=== PATIENT | female | born 1980 | race Caucasian/White ===

== ENCOUNTER 2022-04-05 20:49 | Emergency (ER) | payer OTHER, SELFPAY ==
--- NOTE | ~2022-04-05 | XR_ITS ---
EXAMINATION: XR SHOULDER, LEFT CLINICAL INFORMATION: Pain and decreased range of motion COMPARISON: None TECHNIQUE: AP external rotation, Grashey, scapular Y, and axillary views of the left shoulder. FINDINGS: The bones and soft tissues are normal. No fracture. Glenohumeral and acromioclavicular alignment is anatomic with normal joint space. No abnormal soft tissue calcifications. XR/XR shoulder LT min 2V IMPRESSION: Normal left shoulder.
[2022-04-05 21:00] VITALS: BP 115/79; PULSE 108; RESP 20; TEMP 37.2; O2SAT 96; BMI 26.6
--- NOTE | 2022-04-06 00:42 | ED_ITS ---
HPI - General Adult General Chief complaint: Extremity Problem Stated complaint: Extremities Swelling/pain Time Seen by Provider: 04/06/22 00:36 Source: patient Mode of arrival: ambulatory Limitations: no limitations History of Present Illness HPI narrative: Patient anxiety disorder had left lower molar pulled 4 days ago complaining of leg swelling for last 2 weeks no shortness of breath no liver problems no hist ory of alcohol use no chest pain or palpitation feels whole body is swollen but mostly legs no distress no fever or chills Related Data Previous Rx's Medication Instructions Recorded clonazepam 1 mg tablet 1 mg PO TID PRN anxiety 5 days #15 04/09/21 tabs ondansetron HCl 8 mg tablet 8 mg PO Q12H 30 days #60 tabs 09/01/21 quetiapine 200 mg tablet 400 mg PO BEDTIME 90 days #180 tabs 09/01/21 hydrochlorothiazide 12.5 mg tablet 12.5 mg PO QAM #14 tabs 04/06/22 Allergies Allergy/AdvReac Type Severity Reaction Status Date / Time pantoprazole Allergy Unknown stomach Verified 04/05/22 21:05 pain Review of Systems Review of Systems: Yes all other systems are reviewed and are negative [facility] Past Medical History Medical History Anxiety Surgical History History of tubal ligation Family History Family History Father No problems noted. Mother Chronic mental illness Maternal Grandmother Breast cancer Maternal Uncle Throat cancer Sister History of tumor Social History Social History Advance Directives: No Advance Directives Information Provided: Yes Physical Exam ED Vital Signs: Vital Signs - 24 hr 04/05/22 21:00 04/06/22 00:51 Temperature 99.0 F 98.9 F Pulse Rate 108 H 86 Respiratory Rate 20 16 Blood Pressure 115/79 121/86 Pulse Oximetry 96 98 Oxygen Delivery Method Room Air Room Air BMI result Body Mass Index 26.6 Appearance: Alert. Oriented X3. No acute distress. Eyes: PERRLA, No Nystagmus ENT: Pharynx normal. Oral Mucosa moist Neck: Normal inspection. Neck supple. CVS: Normal heart rate and rhythm. Pulses normal. Respiratory: No respiratory distress. Equal air entry bilateral, no wheezing/rales/rhonchi Abdomen: Soft and nontender. Bowel sounds are present, no mass palpable, no CVA tenderness Skin: Skin warm and dry. Normal skin color. Normal skin turgor. Extremities: trace lower extremity edema. No calf tenderness, diffuse mild tenderness left rotator cuff good range of movement Neuro: Oriented X 3. No motor deficit. No sensory deficit.No cerebellar signs , cranial nerves II-XII intact Medical Decision Making MDM Narrative Medical decision making narrative: Patient with mild leg edema labs are stable will discharge patient home advised to keep the legs elevated no signs of CHF Lab Data Lab results reviewed: Yes I reviewed the patient's lab results. Result diagrams: 04/06/22 00:48 04/06/22 00:48 Labs: Lab Results 04/06/22 04/06/22 Range/Units 00:48 00:48 WBC 10.2 (4.8-10.8) X10*3/uL RBC 4.35 (4.20-5.50) X10*6/uL Hgb 13.0 (12.0-16.0) g/dl Hct 38.8 (37.0-47.0) % MCV 89.2 (80.0-98.0) fL MCH 29.9 (27.0-33.0) pg MCHC 33.5 (31.0-35.0) g/dl RDW 12.7 (11.0-16.0) % Plt Count 193 (160-400) X10*3/uL MPV 10.4 (9.4-12.3) fL Immature Gran % (Auto) 0.2 (0.0-0.4) % Neut % (Auto) 70.0 (45-73) % Lymph % (Auto) 24.0 (20-40) % [place] % (Auto) 5.1 (2-11) % Eos % (Auto) 0.3 (0-4) % Baso % (Auto) 0.4 (0-2) % Lymph # (Auto) 2.5 (1.2-4.9) X10*3/uL [place] # (Auto) 0.5 (0.1-1.2) X10*3/uL Eos # (Auto) 0.0 (0.0-0.4) X10*3/uL Baso # (Auto) 0.0 (0.0-0.2) X10*3/uL Abs Immat Gran (auto) 0.02 (0.00-0.03) X10*3/uL Absolute Neuts (auto) 7.2 (2.0-8.3) x10*3/uL Absolute Nucleated RBC 0.000 (0.0-0.012) X10*3/uL Nucleated RBC % (auto) 0.0 (0.0-0.2) /100WBC Sodium 139 (135-145) mmol/L Potassium 4.1 (3.3-5.1) mmol/L Chloride 106 (96-108) mmol/L Carbon Dioxide 24 (22-29) mmol/L Anion Gap 13 (12-20) BUN 10 (9-16) mg/dL Creatinine 0.82 (0.5-1.4) mg/dL Estim Creat Clear Calc 90.1 Estimated GFR > 60 Random Glucose 139 H (60-115) mg/dL Calcium 9.0 (8.4-10.2) mg/dL Total Bilirubin 0.3 (0.0-1.0) mg/dL AST 21 (5-31) U/L ALT 18 (0-31) U/L Alkaline Phosphatase 80 (39-117) U/L Total Protein 6.9 (6.5-8.0) g/dL Albumin 4.1 (3.5-5.0) g/dL Discharge Plan Discharge Clinical Impression: Lower extremity edema Patient Disposition: Home, Self-Care Instructions: Leg Edema (ED) Additional Instructions: Non stand for long time Keep the legs elevated Take hydrochlorothiazide for severe swelling of the leg as needed once a day Prescriptions: New hydrochlorothiazide 12.5 mg tablet 12.5 mg PO QAM Qty: 14 0RF No Action clonazepam 1 mg tablet 1 mg PO TID PRN (Reason: anxiety) 5 Days Qty: 15 0RF ondansetron HCl 8 mg tablet 8 mg PO Q12H 30 Days Qty: 60 6RF quetiapine 200 mg tablet 400 mg PO BEDTIME 90 Days Qty: 180 3RF
[2022-04-06 00:51] VITALS: BP 121/86; PULSE 86; RESP 16; TEMP 37.2; O2SAT 98
[2022-04-06 00:54] LABS: MANUAL DIFF FLAG NO
[2022-04-06 00:55] LABS: Basophils Percent Auto 0.4 % (0-2); Eosinophils Percent Auto 0.3 % (0-4); Hematocrit 38.8 % (37.0-47.0); Imm Gran Abs Auto 0.02 X10*3/uL (0.00-0.03); Imm Gran Pct Auto 0.2 % (0.0-0.4); Lymphocytes Absolute Auto 2.5 X10*3/uL (1.2-4.9); Mean Corpuscular HGB Conc 33.5 g/dl (31.0-35.0); Mean Corpuscular Hemoglobin 29.9 pg (27.0-33.0); Mean Corpuscular Volume 89.2 fL (80.0-98.0); Mean Platelet Volume 10.4 fL (9.4-12.3); Monocytes Absolute Auto 0.5 X10*3/uL (0.1-1.2); Monocytes Percent Auto 5.1 % (2-11); Neutrophils Absolute Auto 7.2 x10*3/uL (2.0-8.3); Platelet Count 193 X10*3/uL (160-400); Red Blood Count 4.35 X10*6/uL (4.20-5.50); Red Cell Distribution Width 12.7 % (11.0-16.0); White Blood Count 10.2 X10*3/uL (4.8-10.8)
[2022-04-06 01:16] LABS: Alanine Aminotransferase 18 U/L (0-31); Albumin Level 4.1 g/dL (3.5-5.0); Alkaline Phosphatase 80 U/L (39-117); Anion Gap 13 (12-20); Aspartate Amino Transferase 21 U/L (5-31); Bilirubin Total 0.3 mg/dL (0.0-1.0); Blood Urea Nitrogen 10 mg/dL (9-16); Carbon Dioxide 24 mmol/L (22-29); Chloride 106 mmol/L (96-108); Creatinine Clr Calc Pharmacy 90.1; Estimated Glomerular Filt Rate > 60; Glucose Random 139 mg/dL (60-115); Potassium 4.1 mmol/L (3.3-5.1); Sodium 139 mmol/L (135-145); Total Protein 6.9 g/dL (6.5-8.0)
[2022-04-06 02:09] LABS: B Type Natriuretic Peptide < 10 pg/mL (<100)
== END 2022-04-06 01:45 | disposition home or self-care (01) ==
PROVIDERS: Emergency Provider Internal Medicine; PCP Internal Medicine
DX: R60.0 Localized edema (principal)
CPT/HCPCS: 36415; 73030; 80053; 83880; 85025; 99283

== ENCOUNTER 2022-07-19 17:34 | Emergency (ER) | payer OTHER, SELFPAY ==
--- NOTE | ~2022-07-19 | CT_ITS ---
EXAMINATION: CT SOFT TISSUE NECK WITH CONTRAST CLINICAL INFORMATION: Right-sided facial swelling. Dental pain. COMPARISON: 454 TECHNIQUE: Multidetector helical imaging was performed in the axial plane following the administration of 60 mL of Omnipaque 350 intravenous contrast. Multiple axial reformats and coronal/sagittal reconstructions were created the technologist workstation for review. This CT examination was performed using dose optimization techniques as appropriate, variously including the following: *Automated exposure control. *Adjustment of mA and/or kV according to patient size (this includes techniques or standardized protocols for targeted exams where dose is matched to indication/reason for exam; i.e. extremities or head). *Use of iterative reconstruction technique. DLP: 454 mGy-cm FINDINGS: Odontogenic enamel erosions most notably affecting the mandibular right-sided canine and mandibular right molar. Periapical lucency associated with the mandibular right molar. There is a peripherally enhancing collection along the outer table of the right mandibular body, measuring up to 1.4 x 0.3 cm. Moderate surrounding soft tissue edema within the right side of face extending into right parotid space and the right anterior neck. Moderate edema of the right aspect of the platysma muscle. No additional discrete fluid collection within the deep soft tissues of the neck. Mild fat stranding within the right premaxillary and retromaxillary adipose tissue. The left-sided premaxillary/retromaxillary is maintained. The pterygopalatine fossa, orbital apical, parapharyngeal, and prelaryngeal adipose tissue is maintained. Otherwise, normal appearance of the parotid, submandibular, and thyroid glands. Mildly prominent right level IIa lymph node measures up to 1.3 cm (within normal limits). Otherwise, scattered subcentimeter lymph nodes bilaterally, none of which are pathologically enlarged or abnormally enhancing. No demonstrated focal lesion or abnormal enhancement within the intrinsic tissues of the tongue or floor of mouth. Normal mucosal contours of the pharynx and larynx without abnormal enhancement. Normal appearance of the hyoid bone, thyroid cartilage, or cartilaginous trachea. The airways remains widely patent. No radiopaque foreign bodies. The atlantooccipital and atlantoaxial articulations remain well aligned. Reversal the normal cervical lordosis centered on C5. No evidence of acute fracture or subluxation of the cervical spine. The vertebral body heights are maintained. Moderate degenerative disc disease at C5-C6 and C6-C7 No evidence of epidural collection. There is no prevertebral soft tissue swelling. Normal opacification of the cervical arterial and venous structures. The visualized portion of the skull base is without significant abnormalities. The visualized paranasal sinuses are clear. The mastoid air cells and middle ear cavities are clear. No demonstrated significant periapical odontogenic disease. CT Upper Chest: The visualized lung apices and upper mediastinum are within normal limits. CT/CT soft tissue neck w IV con IMPRESSION: Odontogenic disease most notably affecting the mandibular right-sided canine and mandibular right molar. There is a small collection along the outer table of the right mandibular body suggestive of a developing odontogenic abscess, measuring 1.4 x 0.3 cm. Moderate surrounding soft tissue edema within the right side of face extending into the right parotid space and right anterior neck.
[2022-07-19 17:44] VITALS: BP 143/86; PULSE 136; RESP 20; TEMP 37.2; O2SAT 96; BMI 26.6
--- NOTE | 2022-07-19 18:24 | ED.DENTAL ---
HPI - Dental/Oral General Chief complaint: Dental/Oral <EVONNE Rob - Last Filed: 07/30/22 10:22> Stated complaint: abcess tooth <EVONNE Rob - Last Filed: 07/30/22 10:22> Time Seen by Provider: 07/19/22 20:51 <EVONNE Rob - Last Filed: 07/30/22 10:22> Related Data Home medications: Previous Rx's Medication Instructions Recorded clonazepam 1 mg tablet 1 mg PO TID PRN anxiety 5 days #15 04/09/21 tabs ondansetron HCl 8 mg tablet 8 mg PO Q12H 30 days #60 tabs 09/01/21 quetiapine 200 mg tablet 400 mg PO BEDTIME 90 days #180 tabs 09/01/21 hydrochlorothiazide 12.5 mg tablet 12.5 mg PO QAM #14 tabs 04/06/22 amoxicillin 875 mg-potassium 1 tab PO BID 7 days #14 tabs 07/19/22 clavulanate 125 mg tablet ketorolac 10 mg tablet 10 mg PO Q6H PRN pain 5 days #20 07/19/22 tabs oxycodone 5 mg capsule 5 mg PO Q8H PRN breakthrough pain, 07/19/22 severe #4 caps <EVONNE Rob - Last Filed: 07/30/22 10:22> Allergies/adverse reactions: Allergies Allergy/AdvReac Type Severity Reaction Status Date / Time pantoprazole Allergy Unknown stomach Verified 04/05/22 21:05 pain <EVONNE Rob Last Filed: 07/30/22 10:22> Review of Systems Review of Systems: Yes all other systems are reviewed and are negative <EVONNE Rob Last Filed: 07/30/22 10:22> Constitutional: Constitutional: Reports as per HPI <EVONNE Rob Last Filed: 07/30/22 10:22> PMFSH Past Medical History Attestation statement: The following information was validated with the patient. <EVONNE Rob Last Filed: 07/30/22 10:22> Medical History: Medical History Anxiety <EVONNE Rob Last Filed: 07/30/22 10:22> Surgical History: Surgical History History of tubal ligation <EVONNE Rob - Last Filed: 07/30/22 10:22> Family History Family History: Family History Father No problems noted. Mother Chronic mental illness Maternal Grandmother Breast cancer Maternal Uncle Throat cancer Sister History of tumor <EVONNE Rob - Last Filed: 07/30/22 10:22> Social History Social History: Social History Advance Directives: No Advance Directives Information Provided: No <EVONNE Rob - Last Filed: 07/30/22 10:22> Physical Exam Vital Signs: Vital Signs: Last Vital Signs Temp 98.6 F 07/19/22 23:42 Pulse 77 07/19/22 23:42 Resp 18 07/19/22 23:42 BP 127/76 07/19/22 23:42 Pulse Ox 96 07/19/22 23:42 O2 Del Method 07/19/22 21:47 BMI result Body Mass Index 26.6 <EVONNE Rob - Last Filed: 07/30/22 10:22> Vital Signs: Last Vital Signs Temp 98.6 F 07/19/22 23:42 Pulse 77 07/19/22 23:42 Resp 18 07/19/22 23:42 BP 127/76 07/19/22 23:42 Pulse Ox 96 07/19/22 23:42 O2 Del Method 07/19/22 21:47 BMI result Body Mass Index 26.6 <Tejal Espino MD - Last Filed: 07/19/22 23:30> Const: General: cooperative, healthy appearing and no acute distress <EVONNE Rob - Last Filed: 07/30/22 10:22> Orientation/consciousness: patient oriented x3 <EVONNE Rob - Last Filed: 07/30/22 10:22> Limitations: no limitations <EVONNE Rob - Last Filed: 07/30/22 10:22> HEENT: Head: Yes normal to inspection and Yes atraumatic <Ingrid Karthikgurpreet PA - Last Filed: 07/30/22 10:22> Ears: hearing grossly normal bilaterally <Ingrid Karthikgurpreet PA - Last Filed: 07/30/22 10:22> General nose exam: Normal external nose present <Ingrid Covarrubias PA - Last Filed: 07/30/22 10:22> Face and sinus: Yes normal facial exam <Ingrid Karthikgurpreet PA - Last Filed: 07/30/22 10:22> Eyes: General: appearance normal, both eyes and all related structures <Ingrid Covarrubias PA - Last Filed: 07/30/22 10:22> EOM: EOMs intact bilaterally <Ingrid Covarrubias PA - Last Filed: 07/30/22 10:22> Neck: Neck: Yes normal visual inspection and Yes no meningeal signs <Ingrid Covarrubias PA - Last Filed: 07/30/22 10:22> Resp: Effort & Inspection: normal respiratory effort and no respiratory distress <Ingrid Covarrubias PA - Last Filed: 07/30/22 10:22> Auscultation: clear to auscultation bilaterally <Ingrid Covarrubias PA - Last Filed: 07/30/22 10:22> Cardio: Rate: regular rate <Ingrid Covarrubias PA - Last Filed: 07/30/22 10:22> Heart sounds: S1 normal heart sound present and S2 normal heart sound present <Ingrid Covarrubias PA - Last Filed: 07/30/22 10:22> GI: Inspection: Yes normal to inspection <Ingrid Covarrubias PA - Last Filed: 07/30/22 10:22> Palpation (GI): Soft to palpation, nontender, no guarding and not rigid <Ingrid Covarrubias PA - Last Filed: 07/30/22 10:22> : General: Yes no CVA tenderness <Ingrid Covarrubias PA - Last Filed: 07/30/22 10:22> Back/Spine/Pelvis: Back: no CVA tenderness <Ingrid Covarrubias PA - Last Filed: 07/30/22 10:22> Skin: Rashes: no rashes <EVONNE Rob Last Filed: 07/30/22 10:22> Wounds: no wounds <EVONNE Rob Last Filed: 07/30/22 10:22> Neuro: General: patient oriented x3, tone normal and no meningeal signs <EVONNE Rob Last Filed: 07/30/22 10:22> Gait exam (Neuro): Normal gait present <EVONNE Rob Last Filed: 07/30/22 10:22> Extrem: General: Yes normal to inspection <EVONNE Rob Last Filed: 07/30/22 10:22> Course Course Course Narrative: RME--42-year-old female past medical history of anxiety presenting to the ED complaining of right-sided facial swelling/dental pain since this morning. Denies drainage from area, difficulty/inability to swallow, ear pain tachycardic to 136 in triage, Notable right facial swelling. Fluctuant area noted to right posterior molar. No erythema Labs including lactic/blood cultures and CT ordered <EVONNE Rob Last Filed: 07/30/22 10:22> Medications Administered Discontinued Medications Generic Name Dose Route Start Last Admin Trade Name Alliq PRN Reason Stop Dose Admin Dexamethasone Sodium Phosphate 10 mg 07/19/22 21:39 07/19/22 22:09 Dexamethasone Sod Phosphate 10 Mg/Ml Vial IVPUSH 07/19/22 21:40 10 mg ONCE ONE Administration Fentanyl 25 mcg 07/19/22 21:39 07/19/22 22:08 Fentanyl Citrate/Pf 100 Mcg/2 Ml Vial IVPUSH 07/19/22 21:40 25 mcg ONCE ONE Administration Protocol Cefepime HCl 1 gm/ Sodium 50 mls @ 100 mls/hr 07/19/22 21:39 07/19/22 23:00 Chloride IV 07/19/22 22:08 Infused ONCE ONE Infusion Sodium Chloride 1,000 mls @ 999 mls/hr 07/19/22 22:30 07/19/22 23:00 Ns IV 07/19/22 23:30 999 mls/hr .Q1H1M HERI Administration Iohexol 100 ml 07/19/22 20:54 07/19/22 20:54 Iohexol 350 Mg/Ml 100 Ml Infus..Btl IV 07/19/22 20:55 60 ml ONCE ONE Administration Ketorolac Tromethamine 15 mg 07/19/22 23:23 07/19/22 23:56 Ketorolac Tromethamine 30 Mg/Ml Vial IVPUSH 07/19/22 23:24 15 mg ONCE ONE Administration <EVONNE Rob - Last Filed: 07/30/22 10:22> Medications Administered Discontinued Medications Generic Name Dose Route Start Last Admin Trade Name Arden PRN Reason Stop Dose Admin Dexamethasone Sodium Phosphate 10 mg 07/19/22 21:39 07/19/22 22:09 Dexamethasone Sod Phosphate 10 Mg/Ml Vial IVPUSH 07/19/22 21:40 10 mg ONCE ONE Administration Fentanyl 25 mcg 07/19/22 21:39 07/19/22 22:08 Fentanyl Citrate/Pf 100 Mcg/2 Ml Vial IVPUSH 07/19/22 21:40 25 mcg ONCE ONE Administration Protocol Cefepime HCl 1 gm/ Sodium 50 mls @ 100 mls/hr 07/19/22 21:39 07/19/22 23:00 Chloride IV 07/19/22 22:08 Infused ONCE ONE Infusion Sodium Chloride 1,000 mls @ 999 mls/hr 07/19/22 22:30 07/19/22 23:00 Ns IV 07/19/22 23:30 999 mls/hr .Q1H1M HERI Administration Iohexol 100 ml 07/19/22 20:54 07/19/22 20:54 Iohexol 350 Mg/Ml 100 Ml Infus..Btl IV 07/19/22 20:55 60 ml ONCE ONE Administration Ketorolac Tromethamine 15 mg 07/19/22 23:23 07/19/22 23:56 Ketorolac Tromethamine 30 Mg/Ml Vial IVPUSH 07/19/22 23:24 15 mg ONCE ONE Administration <Tejal Espino MD - Last Filed: 07/19/22 23:30> Medical Decision Making Medical Decision Making [facility] Narrative: 2129: 42-year-old female with known dental caries comes in with worsening swelling at the right lower jaw since yesterday but denies any fevers or chills or difficulty breathing or swallowing. She is currently meeting sepsis criteria and will receive IVF, abx, steroids. I was able to express a small amount of pus on incision with 11 blade. <Tejal Espino MD - Last Filed: 07/19/22 23:30> Differential Diagnosis Please see the discussion above <Tejal Espino MD - Last Filed: 07/19/22 23:30> Lab Data Please see the discussion above <Tejal Espino MD - Last Filed: 07/19/22 23:30> Result Diagrams: 07/19/22 18:33 07/19/22 18:33 <EVONNE Rob - Last Filed: 07/30/22 10:22> Labs: Lab Results 07/19/22 07/19/22 07/19/22 Range/Units 18:33 18:33 18:33 WBC 10.9 H (4.8-10.8) X10*3/uL RBC 4.57 (4.20-5.50) X10*6/uL Hgb 13.5 (12.0-16.0) g/dl Hct 40.6 (37.0-47.0) % MCV 88.8 (80.0-98.0) fL MCH 29.5 (27.0-33.0) pg MCHC 33.3 (31.0-35.0) g/dl RDW 12.5 (11.0-16.0) % Plt Count 172 (160-400) X10*3/uL MPV 11.2 (9.4-12.3) fL Immature Gran % (Auto) 0.3 (0.0-0.4) % Neut % (Auto) 76.2 H (45-73) % Lymph % (Auto) 15.8 L (20-40) % [place] % (Auto) 7.3 (2-11) % Eos % (Auto) 0.1 (0-4) % Baso % (Auto) 0.3 (0-2) % Lymph # (Auto) 1.7 (1.2-4.9) X10*3/uL [place] # (Auto) 0.8 (0.1-1.2) X10*3/uL Eos # (Auto) 0.0 (0.0-0.4) X10*3/uL Baso # (Auto) 0.0 (0.0-0.2) X10*3/uL Abs Immat Gran (auto) 0.03 (0.00-0.03) X10*3/uL Absolute Neuts (auto) 8.3 (2.0-8.3) x10*3/uL Absolute Nucleated RBC 0.000 (0.0-0.012) X10*3/uL Nucleated RBC % (auto) 0.0 (0.0-0.2) /100WBC Sodium 140 (135-145) mmol/L Potassium 3.8 (3.3-5.1) mmol/L Chloride 104 (96-108) mmol/L Carbon Dioxide 26 (22-29) mmol/L Anion Gap 14 (12-20) BUN 9 (9-16) mg/dL Creatinine 0.77 (0.5-1.4) mg/dL Estim Creat Clear Calc 96.0 Estimated GFR > 60 Random Glucose 100 (60-115) mg/dL Lactic Acid 1.4 (0.5-2.0) mmol/L Calcium 9.2 (8.4-10.2) mg/dL Total Bilirubin 0.7 (0.0-1.0) mg/dL Direct Bilirubin < 0.2 (0.0-0.5) mg/dL AST 16 (5-31) U/L ALT 10 (0-31) U/L Alkaline Phosphatase 98 (39-117) U/L Total Protein 7.1 (6.5-8.0) g/dL Albumin 4.3 (3.5-5.0) g/dL <EVONNE Rob - Last Filed: 07/30/22 10:22> Lab Results 07/19/22 07/19/22 07/19/22 Range/Units 18:33 18:33 18:33 WBC 10.9 H (4.8-10.8) X10*3/uL RBC 4.57 (4.20-5.50) X10*6/uL Hgb 13.5 (12.0-16.0) g/dl Hct 40.6 (37.0-47.0) % MCV 88.8 (80.0-98.0) fL MCH 29.5 (27.0-33.0) pg MCHC 33.3 (31.0-35.0) g/dl RDW 12.5 (11.0-16.0) % Plt Count 172 (160-400) X10*3/uL MPV 11.2 (9.4-12.3) fL Immature Gran % (Auto) 0.3 (0.0-0.4) % Neut % (Auto) 76.2 H (45-73) % Lymph % (Auto) 15.8 L (20-40) % [place] % (Auto) 7.3 (2-11) % Eos % (Auto) 0.1 (0-4) % Baso % (Auto) 0.3 (0-2) % Lymph # (Auto) 1.7 (1.2-4.9) X10*3/uL [place] # (Auto) 0.8 (0.1-1.2) X10*3/uL Eos # (Auto) 0.0 (0.0-0.4) X10*3/uL Baso # (Auto) 0.0 (0.0-0.2) X10*3/uL Abs Immat Gran (auto) 0.03 (0.00-0.03) X10*3/uL Absolute Neuts (auto) 8.3 (2.0-8.3) x10*3/uL Absolute Nucleated RBC 0.000 (0.0-0.012) X10*3/uL Nucleated RBC % (auto) 0.0 (0.0-0.2) /100WBC Sodium 140 (135-145) mmol/L Potassium 3.8 (3.3-5.1) mmol/L Chloride 104 (96-108) mmol/L Carbon Dioxide 26 (22-29) mmol/L Anion Gap 14 (12-20) BUN 9 (9-16) mg/dL Creatinine 0.77 (0.5-1.4) mg/dL Estim Creat Clear Calc 96.0 Estimated GFR > 60 Random Glucose 100 (60-115) mg/dL Lactic Acid 1.4 (0.5-2.0) mmol/L Calcium 9.2 (8.4-10.2) mg/dL Total Bilirubin 0.7 (0.0-1.0) mg/dL Direct Bilirubin < 0.2 (0.0-0.5) mg/dL AST 16 (5-31) U/L ALT 10 (0-31) U/L Alkaline Phosphatase 98 (39-117) U/L Total Protein 7.1 (6.5-8.0) g/dL Albumin 4.3 (3.5-5.0) g/dL <Tejal Espino MD - Last Filed: 07/19/22 23:30> Radiology Impression Radiologist Impression: My interpretation is in agreement with radiology's impression of the imaging study. <Tejal Espino MD - Last Filed: 07/19/22 23:30> External Record Review External record reviewed: Outpatient record and Prior outpatient labs <Tejal Espino MD - Last Filed: 07/19/22 23:30> Procedures Abscess I/D Site: other <Tejal Espino MD - Last Filed: 07/19/22 23:30> Side (if applicable): right <Tejal Espino MD - Last Filed: 07/19/22 23:30> Technique: incised with blade <Tejal Espino MD - Last Filed: 07/19/22 23:30> Amount of fluid expressed (mL): 2 <Tejal Espino MD - Last Filed: 07/19/22 23:30> Sent for culture/gram staining?: No <Tejal Espino MD - Last Filed: 07/19/22 23:30> Irrigation: Yes <Tejal Espino MD - Last Filed: 07/19/22 23:30> Packing used?: none <Tejal Espino MD - Last Filed: 07/19/22 23:30> Complications: pain <Tejal Espino MD - Last Filed: 07/19/22 23:30> Critical Care Time Critical Care Time Critical Care Time: Yes <Tejal Espino MD - Last Filed: 07/19/22 23:30> Total Critical Care Time: 30 <Tejal Espino MD - Last Filed: 07/19/22 23:30> Attestation: I personally attest to this time spent taking care of the patient. <Tejal Espino MD - Last Filed: 07/19/22 23:30> Discharge Plan Discharge Clinical Impression: Dental abscess, Dental caries <EVONNE Rob - Last Filed: 07/30/22 10:22> Patient Disposition: Home, Self-Care <EVONNE Rob - Last Filed: 07/30/22 10:22> Instructions: Dental Abscess (ED) <EVONNE Rob - Last Filed: 07/30/22 10:22> Additional Instructions: 1. Resume all home medications as prescribed. 2. Complete the entire course of antibiotics as ordered. 3. Tylenol 1000 mg, orally, every 6 hours as needed for pain control. Do not exceed 4000 mg within 24 hours. 4. I recommend applying ice to the lower edge of your jaw for 5-10 minutes, unexposed skin, 3 to 4 times a day. 5. Follow-up with a dentist in the next 3-5 days. Return to the ER for any worsening of symptoms. <EVONNE Rob - Last Filed: 07/30/22 10:22> Prescriptions: New amoxicillin-pot clavulanate 875-125 mg tablet 1 tab PO BID 7 Days Qty: 14 0RF ketorolac 10 mg tablet 10 mg PO Q6H PRN (Reason: pain) 5 Days Qty: 20 0RF Rx Instructions: Patient received Toradol in the emergency room. oxycodone 5 mg capsule 5 mg PO Q8H PRN (Reason: breakthrough pain, severe) Qty: 4 0RF Rx Instructions: Partial Fill upon patient request. No Action clonazepam 1 mg tablet 1 mg PO TID PRN (Reason: anxiety) 5 Days Qty: 15 0RF ondansetron HCl 8 mg tablet 8 mg PO Q12H 30 Days Qty: 60 6RF quetiapine 200 mg tablet 400 mg PO BEDTIME 90 Days Qty: 180 3RF hydrochlorothiazide 12.5 mg tablet 12.5 mg PO QAM Qty: 14 0RF <EVONNE Rob - Last Filed: 07/30/22 10:22> Referrals: Jade Adrian MD [Primary Care Provider] - <EVONNE Rob - Last Filed: 07/30/22 10:22> Stand Alone Forms: Work/School Release <EVONNE Rob - Last Filed: 07/30/22 10:22> Interventions: ED Discharge Assessment Last Done: 07/20/22 00:00 <EVONNE Rob - Last Filed: 07/30/22 10:22> Discharge Date/Time: 07/20/22 00:01 <EVONNE Rob - Last Filed: 07/30/22 10:22>
[2022-07-19 18:40] LABS: MANUAL DIFF FLAG NO
[2022-07-19 18:58] LABS: Basophils Percent Auto 0.3 % (0-2); Eosinophils Percent Auto 0.1 % (0-4); Hematocrit 40.6 % (37.0-47.0); Hemoglobin 13.5 g/dl (12.0-16.0); Imm Gran Abs Auto 0.03 X10*3/uL (0.00-0.03); Imm Gran Pct Auto 0.3 % (0.0-0.4); Lactic Acid 1.4 mmol/L (0.5-2.0); Lymphocytes Absolute Auto 1.7 X10*3/uL (1.2-4.9); Lymphocytes Percent Auto 15.8 % (20-40); Mean Corpuscular HGB Conc 33.3 g/dl (31.0-35.0); Mean Corpuscular Hemoglobin 29.5 pg (27.0-33.0); Mean Corpuscular Volume 88.8 fL (80.0-98.0); Mean Platelet Volume 11.2 fL (9.4-12.3); Monocytes Absolute Auto 0.8 X10*3/uL (0.1-1.2); Monocytes Percent Auto 7.3 % (2-11); Neutrophils Absolute Auto 8.3 x10*3/uL (2.0-8.3); Neutrophils Percent Auto 76.2 % (45-73); Platelet Count 172 X10*3/uL (160-400); Red Blood Count 4.57 X10*6/uL (4.20-5.50); Red Cell Distribution Width 12.5 % (11.0-16.0); White Blood Count 10.9 X10*3/uL (4.8-10.8)
[2022-07-19 19:07] LABS: Alanine Aminotransferase 10 U/L (0-31); Albumin Level 4.3 g/dL (3.5-5.0); Alkaline Phosphatase 98 U/L (39-117); Anion Gap 14 (12-20); Aspartate Amino Transferase 16 U/L (5-31); Bilirubin Direct < 0.2 mg/dL (0.0-0.5); Bilirubin Total 0.7 mg/dL (0.0-1.0); Blood Urea Nitrogen 9 mg/dL (9-16); Calcium 9.2 mg/dL (8.4-10.2); Carbon Dioxide 26 mmol/L (22-29); Chloride 104 mmol/L (96-108); Estimated Glomerular Filt Rate > 60; Glucose Random 100 mg/dL (60-115); Potassium 3.8 mmol/L (3.3-5.1); Sodium 140 mmol/L (135-145); Total Protein 7.1 g/dL (6.5-8.0)
[2022-07-19] MEDS: iohexoL 350 MG/ML 100 ML INFUS..BTL IV (20:54)
[2022-07-19 21:47] VITALS: BP 186/100; PULSE 112; RESP 20; TEMP 36.7; O2SAT 99
[2022-07-19] MEDS: fentaNYL citrate/PF 100 MCG/2 ML VIAL 25 MCG IVPUSH (22:08)
[2022-07-19] MEDS: cefEPime HCl 1 GM in 0.9 % Sodium Chloride 50 ML IV (22:09)
[2022-07-19] MEDS: dexAMETHasone sod phosphate 10 MG/ML VIAL IVPUSH (22:09)
[2022-07-19] MEDS: 0.9 % Sodium Chloride 1,000 ML 999 ML IV (23:00)
[2022-07-19 23:42] VITALS: BP 127/76; PULSE 77; RESP 18; TEMP 37; O2SAT 96
[2022-07-19] MEDS: Ketorolac Tromethamine 30 MG/ML VIAL 15 MG IVPUSH (23:56)
== END 2022-07-20 00:01 | disposition home or self-care (01) ==
PROVIDERS: Physician Assistant; Emergency Provider Student in an Organized Health Care Education/Training Program; PCP Internal Medicine
DX: K04.7 Periapical abscess without sinus (principal); K02.9 Dental caries, unspecified; M54.2 Cervicalgia
CPT/HCPCS: 36415; 41800; 70491; 80048; 80076; 83605; 85025; 87040; 96365; 96375; 99284; J0692; J1100; J1885; J3010; Q9967

== ENCOUNTER 2023-03-15 10:07 | Emergency (ER) | payer OTHER, SELFPAY ==
[2023-03-15 10:24] VITALS: PULSE 110; O2SAT 99; BMI 30.4
--- NOTE | 2023-03-15 10:24 | ED.GENADULT ---
HPI - General Adult General Chief complaint: Nausea/Vomiting/Diarrhea Stated complaint: nausea vomiting heroin withdrawa in police custody Time Seen by Provider: 03/15/23 10:24 Source: patient, EMS and RN notes reviewed Mode of arrival: EMS Limitations: no limitations History of Present Illness HPI narrative: Patient is a 43-year-old female with history of anxiety, opioid use presenting to the emergency department from the court house in [place] custody with nausea and vomiting, upper abdominal pain. States she has not used heroin for 2 days and is experiencing withdrawal symptoms. Reports last use was prior to recent arrest, use six bags at that time. Denies any fevers. Denies any toxic ingestion. complaint: nausea and vomiting Onset (ago): hour(s) Location: abdomen Radiation: non-radiation Severity: moderate Quality: burning Pain Consistency: constant Relieving factors: none Exacerbating factors: none Associated symptoms: nausea/vomiting Treatments prior to arrival: none Related Data Previous Rx's Medication Instructions Recorded clonazepam 1 mg tablet 1 mg PO TID PRN anxiety 5 days #15 04/09/21 tabs hydrochlorothiazide 12.5 mg tablet 12.5 mg PO QAM #14 tabs 04/06/22 amoxicillin 875 mg-potassium 1 tab PO BID 7 days #14 tabs 07/19/22 clavulanate 125 mg tablet ketorolac 10 mg tablet 10 mg PO Q6H PRN pain 5 days #20 07/19/22 tabs oxycodone 5 mg capsule 5 mg PO Q8H PRN breakthrough pain, 07/19/22 severe #4 caps quetiapine 200 mg tablet 400 mg (2 x 200 mg) PO BEDTIME 90 08/18/22 days #180 tabs ondansetron HCl 8 mg tablet 8 mg PO Q12H 30 days #60 tabs 09/06/22 Allergies Allergy/AdvReac Type Severity Reaction Status Date / Time pantoprazole Allergy Unknown stomach Verified 03/15/23 10:24 pain Review of Systems Review of Systems: As per HPI. Yes all other systems are reviewed and are negative Constitutional: Constitutional: Reports as per HPI [facility] Past Medical History Medical History Anxiety Surgical History History of tubal ligation Family History Family History Father No problems noted. Mother Chronic mental illness Maternal Grandmother Breast cancer Maternal Uncle Throat cancer Sister History of tumor Social History Social History Alcohol intake: never Smoked in Last 30 Days: Yes Use of substances other than those prescribed or required for medical reasons: Yes Substance Use Type: Heroin Substance Use Frequency: Chronic Longstanding Last Used Substance: Days (ago) Advance Directives: No Patient : No Physical Exam ED Vital Signs: Vital Signs - 24 hr 03/15/23 10:27 Pulse Rate 97 Respiratory Rate 20 Pulse Oximetry 99 Oxygen Delivery Method Room Air BMI result Body Mass Index 30.4 Vital signs have been reviewed and appear to be correct. Heart rate normal. Respiratory rate normal. Oxygen saturation normal. Staff unable to obtain temperature or blood pressure this time due to patient vomiting. Const General: cooperative Orientation/consciousness: oriented to person, oriented to place, oriented to time and patient oriented x3 Limitations: no limitations HENMT Head: Yes normocephalic and Yes atraumatic Ears: external ears normal General nose exam: Normal external nose present Face and sinus: Yes face symmetric Mouth: oropharynx normal and moist mucous membranes Throat: Yes uvula midline Eyes Pupils: Equal, round and reactive pupils present Resp Effort & Inspection: normal respiratory effort and able to speak in complete sentences Auscultation: clear to auscultation bilaterally Cardio Rate: regular rate Rhythm: regular rhythm Heart sounds: S1 normal heart sound present and S2 normal heart sound present GI Palpation (GI): Soft to palpation and nontender Auscultation: normoactive bowel sounds General: Yes no CVA tenderness Back/Spine/Pelvis Back: no CVA tenderness Skin General skin exam: elasticity normal and turgor normal Neuro General: oriented to person, oriented to place, oriented to time, patient oriented x3, moves all extremities and no focal motor deficits Cranial nerves: Yes Equal, round and reactive pupils present Cognition (Neuro): normal cognition Extrem General: Yes full ROM Psych Mental Status: mental status grossly normal Affect: normal affect Thought process: Normal thought process present Medications Administered Generic Name Dose Route Start Last Admin Trade Name Freq PRN Reason Stop Dose Admin Sodium Chloride 1,000 mls @ 999 mls/hr 03/15/23 10:30 03/15/23 10:43 Ns IV 03/15/23 11:30 999 mls/hr .Q1H1M HERI Administration Discontinued Medications Generic Name Dose Route Start Last Admin Trade Name Freq PRN Reason Stop Dose Admin Ondansetron HCl 4 mg 03/15/23 10:25 03/15/23 10:42 Ondansetron Hcl 4 Mg/2 Ml Vial IVPUSH 03/15/23 10:26 4 mg ONCE ONE Administration Medical Decision Making Medical Decision Making [facility] Narrative: Patient is a 43-year-old female with history of anxiety, opioid use presenting to the emergency department from the court house in place custody with nausea and vomiting, upper abdominal pain. On exam patient is awake, A+Ox3, VS WNL, unable to obtain BP or temperature at this time due to vomiting, normal neurological exam without focal deficits, physical exam findings as above. Given reported symptoms and physical exam findings, initial differential includes opiate withdrawal, gastritis, electrolyte abnormality. Plan: basic labs, urine drug screen, IV fluids, medicate for nausea 11:31 Patient now refusing labs, stating that she wishes to leave against medical advice. Risks of leaving against medical advice discussed with patient up to and including . Patient verbalized understanding of risks and still wishes to leave against medical advice. Advised patient she can return at any time. Discharge Plan Discharge Clinical Impression: Nausea & vomiting Patient Disposition: Left Against Medical Advice Prescriptions: No Action clonazepam 1 mg tablet 1 mg PO TID PRN (Reason: anxiety) 5 Days Qty: 15 0RF quetiapine 200 mg tablet 400 mg PO BEDTIME 90 Days Qty: 180 3RF ondansetron HCl 8 mg tablet 8 mg PO Q12H 30 Days Qty: 60 6RF amoxicillin-pot clavulanate 875-125 mg tablet 1 tab PO BID 7 Days Qty: 14 0RF ketorolac 10 mg tablet 10 mg PO Q6H PRN (Reason: pain) 5 Days Qty: 20 0RF Rx Instructions: Patient received Toradol in the emergency room. oxycodone 5 mg capsule 5 mg PO Q8H PRN (Reason: breakthrough pain, severe) Qty: 4 0RF Rx Instructions: Partial Fill upon patient request. hydrochlorothiazide 12.5 mg tablet 12.5 mg PO QAM Qty: 14 0RF Stand Alone Forms: Against Medical Advice
[2023-03-15 10:27] VITALS: PULSE 97; RESP 20; O2SAT 99
[2023-03-15] MEDS: ondansetron HCL 4 MG/2 ML VIAL IVPUSH (10:42)
[2023-03-15] MEDS: 0.9 % Sodium Chloride 1,000 ML 999 ML IV (10:43)
--- NOTE | 2023-03-15 10:43 | PC.NURSE ---
alert and oriented x3, unable to obtain BP d/t pt actively vomiting - will attempt to obtain BP when able. pt biba from [facility] d/t n/v from heroin withdrawals. pt verbalizes last use of heroin was sometime yesterday. pt states she is chronic user and uses 6 bags daily intravenously through her neck. 22gIV placed in right AC - medications administered per provider order. pt provided w/ emesis bag. call ross placed within reach.
--- NOTE | 2023-03-15 11:32 | PC.NURSE ---
pt requesting to leave AMA at this time. form signed. will d/c when paperwork is in.
--- NOTE | 2023-03-15 11:45 | PC.NURSE ---
pt left AMA w/o signing d/c paperwork.
== END 2023-03-15 11:46 | disposition left against medical advice (07) ==
PROVIDERS: Emergency Provider Emergency Medicine
DX: R11.2 Nausea with vomiting, unspecified (principal); F11.90 Opioid use, unspecified, uncomplicated; F41.9 Anxiety disorder, unspecified; Z79.899 Other long term (current) drug therapy
CPT/HCPCS: 96374; 99284; J2405

== ENCOUNTER 2023-12-28 23:35 | Emergency (ER) | payer OTHER, SELFPAY ==
[2023-12-28 23:44] VITALS: BP 108/55; PULSE 77; RESP 16; TEMP 36.8; O2SAT 97; BMI 28.3
[2023-12-29 00:02] LABS: MANUAL DIFF FLAG NO
[2023-12-29 00:03] LABS: Basophils Percent Auto 0.4 % (0-2); Eosinophils Absolute Auto 0.1 X10*3/uL (0.0-0.4); Eosinophils Percent Auto 1.7 % (0-4); Hematocrit 40.4 % (37.0-47.0); Hemoglobin 13.8 g/dl (12.0-16.0); Imm Gran Abs Auto 0.01 X10*3/uL (0.00-0.03); Imm Gran Pct Auto 0.1 % (0.0-0.4); Lymphocytes Absolute Auto 2.9 X10*3/uL (1.2-4.9); Lymphocytes Percent Auto 40.3 % (20-40); Mean Corpuscular HGB Conc 34.2 g/dl (31.0-35.0); Mean Corpuscular Hemoglobin 29.6 pg (27.0-33.0); Mean Corpuscular Volume 86.7 fL (80.0-98.0); Monocytes Absolute Auto 0.4 X10*3/uL (0.1-1.2); Monocytes Percent Auto 6.1 % (2-11); Neutrophils Absolute Auto 3.7 x10*3/uL (2.0-8.3); Neutrophils Percent Auto 51.4 % (45-73); Platelet Count 166 X10*3/uL (160-400); Red Blood Count 4.66 X10*6/uL (4.20-5.50); Red Cell Distribution Width 13.2 % (11.0-16.0); White Blood Count 7.2 X10*3/uL (4.8-10.8)
[2023-12-29 00:16] LABS: Alanine Aminotransferase 20 U/L (0-31); Albumin Level 4.2 g/dL (3.5-5.0); Alkaline Phosphatase 94 U/L (39-117); Anion Gap 11 (12-20); Aspartate Amino Transferase 18 U/L (5-31); Bilirubin Total 0.4 mg/dL (0.0-1.0); Blood Urea Nitrogen 10 mg/dL (9-16); Calcium 9.5 mg/dL (8.4-10.2); Carbon Dioxide 29 mmol/L (22-29); Chloride 104 mmol/L (96-108); Creatinine Clr Calc Pharmacy 76.8; Estimated Glomerular Filt Rate > 60; Glucose Random 109 mg/dL (60-115); Sodium 140 mmol/L (135-145)
[2023-12-29 00:29] LABS: HCG Quantitative < 2 mIU/mL
--- NOTE | 2023-12-29 03:09 | ED_ITS ---
HPI - Extremity Problem General Chief complaint: Extremity Problem Stated complaint: swelling in lower legs Time Seen by Provider: 12/29/23 03:02 Source: patient Mode of arrival: ambulatory Limitations: no limitations History of Present Illness ED Provider: Dr. Brynn Kerr HPI Narrative: Patient comes to the emergency room complaining of lower extremity edema. Patient states it started about 3 weeks ago. Patient states that she feels that her skin in her lower extremities do stretching quite a bit. Denies any chest pain or shortness of breath. Patient denies any new prescriptions or any injuries. Related Data Previous Rx's ?Medication ?Instructions ?Recorded clonazepam 1 mg tablet 1 mg PO TID PRN anxiety 5 days #15 04/09/21 tabs hydrochlorothiazide 12.5 mg tablet 12.5 mg PO QAM #14 tabs 04/06/22 amoxicillin 875 mg-potassium 1 tab PO BID 7 days #14 tabs 07/19/22 clavulanate 125 mg tablet ketorolac 10 mg tablet 10 mg PO Q6H PRN pain 5 days #20 07/19/22 tabs oxycodone 5 mg capsule 5 mg PO Q8H PRN breakthrough pain, 07/19/22 severe #4 caps quetiapine 200 mg tablet 400 mg (2 x 200 mg) PO BEDTIME 90 08/18/22 days #180 tabs ondansetron HCl 8 mg tablet 8 mg PO Q12H 30 days #60 tabs 09/06/22 furosemide 40 mg tablet (Lasix) 40 mg PO DAILY #7 tabs 12/29/23 Allergies Allergy/AdvReac Type Severity Reaction Status Date / Time pantoprazole Allergy Unknown stomach Verified 12/28/23 23:47 pain Review of Systems 2 Review of Systems: Constitutional : No Weight loss, No Fever, No Chills, No Night Sweats, No Fatigue, No Malaise ENT/Mouth : No Hearing loss, No Ear Pain, No Nasal Congestion, No Sinus Pain, No Hoarseness, No sore throat, No Rhinorrhea, No Swallowing Difficulty Eyes: No Eye Pain, No Swelling, No Redness, No Foreign Body, No Discharge, No Vision Changes Cardiovascular : No Chest Pain, No SOB, No Dyspnea on Exertion, No Orthopnea, No Edema, No Palpitations Respiratory : No Cough, No Sputum, No Wheezing, No Smoke Exposure, No Dyspnea Gastrointestinal : No Nausea, No Vomiting, No Diarrhea, No Constipation, No abdominal Pain, No Hematochezia, No Melena Genitourinary : no irregular bleeding, No Dysuria, No Urinary Frequency, No Hematuria, No Urinary Incontinence, No Urgency, No Flank Pain, No Urinary Flow Changes, No Hesitancy Musculoskeletal : Complaining of lower extremity edema bilaterally, No joint pain, No Myalgias, No Joint Swelling Skin : No Skin Lesions, No rash Neuro : No Weakness, No Numbness, No Paresthesias, No Loss of Consciousness, No Dizziness, No Headache Psych : No Anxiety/Panic, No Depression, No SI/HI/AH/VH, No Social Issues, Heme/Lymph: No Bruising, No Bleeding,No Lymphadenopathy Endocrine : No Polyuria, No Polydipsia, No Temperature Intolerance [facility] Past Medical History Medical History Anxiety Surgical History History of tubal ligation Family History Family History Father No problems noted. Mother Chronic mental illness Maternal Grandmother Breast cancer Maternal Uncle Throat cancer Sister History of tumor Social History Social History Alcohol intake: never Substance Use Type: Heroin Advance Directives: No Advance Directives Information Provided: No Physical Exam 2 Vital Signs: Vital Signs: Last Vital Signs Temp 98.2 F 12/28/23 23:44 Pulse 77 12/28/23 23:44 Resp 16 12/28/23 23:44 BP 108/55 L 12/28/23 23:44 Pulse Ox 97 12/28/23 23:44 O2 Del Method Room Air 12/28/23 23:44 BMI result Body Mass Index 28.3 Const: Other: Appearance: Alert. Oriented X3. No acute distress. Eyes: Pupils equal, round and reactive to light. ENT: Pharynx normal. Neck: Normal inspection. Neck supple. No lymph nodes noted. No crepitus CVS: Normal heart rate and rhythm. Pulses normal. Normal S1 and S2 Respiratory: No respiratory distress. Breath sounds normal. No Wheezing. No rales Abdomen: Soft and nontender. No rigidity. No distention. Skin: Skin warm and dry. Normal skin color. Normal skin turgor. Extremities: +2 pitting edema bilaterally. No Lacerations. No Rash Neuro: Oriented X 3. No motor deficit. No sensory deficit. Moving all extremities. No slurred speech. CN 2 through 12 grossly intact Psych: calm, cooperative, normal affect Medical Decision Making Medical Decision Making MDM Narrative: My interpretation of labs: Normal hematology and chemistry -normal vitals -I discussed with the patient that she will need diuretics. Patient will take her 1st dose later in the morning. Right now she takes it she will be urinating all night long and not get any rest. Patient has no respiratory difficulty, no need to start diuretics at this time. -discussed with the patient that she needs to follow up with her primary care physician since she will be urinating quite a bit, she will likely need a CBC/chemistry redone in about a week. Patient agrees with plan -patient has no calf tenderness, no redness, no significant pain to palpation on the feet or calves -BNP and D-dimer both negative, DVT not suspected, DVTs score wells criteria -2 Differential Diagnosis Differential Diagnoses: The differential diagnosis associated with the presentation includes (Lower extremity edema, venous insufficiency, CHF) Lab Data 12/28/23 23:58 12/28/23 23:58 Labs: Lab Results 12/28/23 12/29/23 Range/Units 23:58 03:36 WBC 7.2 (4.8-10.8) X10*3/uL RBC 4.66 (4.20-5.50) X10*6/uL Hgb 13.8 (12.0-16.0) g/dl Hct 40.4 (37.0-47.0) % MCV 86.7 (80.0-98.0) fL MCH 29.6 (27.0-33.0) pg MCHC 34.2 (31.0-35.0) g/dl RDW 13.2 (11.0-16.0) % Plt Count 166 (160-400) X10*3/uL MPV 11.0 (9.4-12.3) fL Immature Gran % (Auto) 0.1 (0.0-0.4) % Neut % (Auto) 51.4 (45-73) % Lymph % (Auto) 40.3 H (20-40) % [place] % (Auto) 6.1 (2-11) % Eos % (Auto) 1.7 (0-4) % Baso % (Auto) 0.4 (0-2) % Lymph # (Auto) 2.9 (1.2-4.9) X10*3/uL [place] # (Auto) 0.4 (0.1-1.2) X10*3/uL Eos # (Auto) 0.1 (0.0-0.4) X10*3/uL Baso # (Auto) 0.0 (0.0-0.2) X10*3/uL Abs Immat Gran (auto) 0.01 (0.00-0.03) X10*3/uL Absolute Neuts (auto) 3.7 (2.0-8.3) x10*3/uL Absolute Nucleated RBC 0.000 (0.0-0.012) X10*3/uL Nucleated RBC % (auto) 0.0 (0.0-0.2) /100WBC D-Dimer High Sensitivty < 150 NG/ML Sodium 140 (135-145) mmol/L Potassium 4.0 (3.3-5.1) mmol/L Chloride 104 (96-108) mmol/L Carbon Dioxide 29 (22-29) mmol/L Anion Gap 11 L (12-20) BUN 10 (9-16) mg/dL Creatinine 0.98 (0.5-1.4) mg/dL Estim Creat Clear Calc 76.8 Estimated GFR > 60 Random Glucose 109 (60-115) mg/dL Calcium 9.5 (8.4-10.2) mg/dL Total Bilirubin 0.4 (0.0-1.0) mg/dL AST 18 (5-31) U/L ALT 20 (0-31) U/L Alkaline Phosphatase 94 (39-117) U/L B-Natriuretic Peptide < 10 (<100) pg/mL Total Protein 7.0 (6.5-8.0) g/dL Albumin 4.2 (3.5-5.0) g/dL Beta HCG, Quant < 2 mIU/mL Scores [place] DVT Alternative Dx as likely as or more likely than DVT: -2 Score: -2 2-tier Risk: unlikely risk (5%) 3-tier Risk: low risk (3%) Discharge Plan Discharge Clinical Impression: Lower extremity edema Patient Disposition: Home, Self-Care Instructions: Leg Edema (ED) Additional Instructions: Please follow-up with your primary care physician tomorrow. If you have any worsening or new symptoms, please return to the emergency room or call 911 Prescriptions: New furosemide [Lasix] 40 mg tablet 40 mg PO DAILY Qty: 7 0RF No Action clonazepam 1 mg tablet 1 mg PO TID PRN (Reason: anxiety) 5 Days Qty: 15 0RF quetiapine 200 mg tablet 400 mg PO BEDTIME 90 Days Qty: 180 3RF ondansetron HCl 8 mg tablet 8 mg PO Q12H 30 Days Qty: 60 6RF amoxicillin-pot clavulanate 875-125 mg tablet 1 tab PO BID 7 Days Qty: 14 0RF ketorolac 10 mg tablet 10 mg PO Q6H PRN (Reason: pain) 5 Days Qty: 20 0RF Rx Instructions: Patient received Toradol in the emergency room. oxycodone 5 mg capsule 5 mg PO Q8H PRN (Reason: breakthrough pain, severe) Qty: 4 0RF Rx Instructions: Partial Fill upon patient request. hydrochlorothiazide 12.5 mg tablet 12.5 mg PO QAM Qty: 14 0RF Print Language: Tuvaluan
[2023-12-29 03:41] LABS: B Type Natriuretic Peptide < 10 pg/mL (<100)
[2023-12-29 03:54] LABS: D Dimer High Sensitivity < 150 NG/ML
[2023-12-29 04:00] VITALS: BP 111/71; PULSE 71; RESP 18; TEMP 36.6; O2SAT 100
[2023-12-29 04:15] VITALS: BP 111/71; PULSE 71; RESP 18; TEMP 36.6; O2SAT 100
== END 2023-12-29 04:16 | disposition home or self-care (01) ==
PROVIDERS: Emergency Provider Emergency Medicine; PCP Internal Medicine
DX: R60.0 Localized edema (principal)
CPT/HCPCS: 36415; 80053; 83880; 84702; 85025; 85379; 99283; 99284

== ENCOUNTER 2024-03-04 17:41 | Emergency (ER) | payer OTHER, SELFPAY ==
[2024-03-04 18:02] VITALS: BP 143/70; PULSE 93; RESP 20; TEMP 37.2; O2SAT 100; BMI 26.6
--- NOTE | 2024-03-04 18:02 | ED_ITS ---
HPI - Abdominal Pain General Chief Complaint: Nausea/Vomiting/Diarrhea Stated Complaint: fever, abd pain Time Seen by Provider: 03/05/24 00:03 Source: patient, RN notes reviewed and old records reviewed Mode of arrival: ambulatory Limitations: no limitations History of Present Illness ED Provider: Monica HPI narrative: 44-year-old female with past medical history significant for heroin abuse, tubal ligation presents for evaluation of vomiting. She reports vomiting for the last 2 days Her daughter has similar symptoms. The patient reports subjective fevers and chills but never took her temperature to document any fever. She denies any sharp abdominal pain She is still passing gas pain She reports feeling much better after receiving ODT Zofran in triage Denies any coughing, shortness of breath She endorses chronic leg swelling that she was seen for a month ago She reports that she is currently homeless and most of her meals? fast food. ? No other complaints or concerns at this time Related Data Previous Rx's ?Medication ?Instructions ?Recorded clonazepam 1 mg tablet 1 mg PO TID PRN anxiety 5 days #15 04/09/21 tabs hydrochlorothiazide 12.5 mg tablet 12.5 mg PO QAM #14 tabs 04/06/22 amoxicillin 875 mg-potassium 1 tab PO BID 7 days #14 tabs 07/19/22 clavulanate 125 mg tablet ketorolac 10 mg tablet 10 mg PO Q6H PRN pain 5 days #20 07/19/22 tabs oxycodone 5 mg capsule 5 mg PO Q8H PRN breakthrough pain, 07/19/22 severe #4 caps quetiapine 200 mg tablet 400 mg (2 x 200 mg) PO BEDTIME 90 08/18/22 days #180 tabs ondansetron HCl 8 mg tablet 8 mg PO Q12H 30 days #60 tabs 09/06/22 furosemide 40 mg tablet (Lasix) 40 mg PO DAILY #7 tabs 12/29/23 ondansetron 4 mg disintegrating 4 mg PO Q8H PRN nausea and 03/05/24 tablet vomiting #20 tabs Allergies Allergy/AdvReac Type Severity Reaction Status Date / Time pantoprazole Allergy Unknown stomach Verified 03/04/24 18:03 pain Review of Systems Constitutional: Denies body ache(s), Reports chills and Reports fever(s) Eyes: Denies blurry vision Denies vertigo and Denies dizziness Cardiovascular: Denies chest pain, Reports leg edema and Denies dyspnea Respiratory: Denies cough and Denies dyspnea Gastrointestinal: Reports abdominal pain, Reports nausea and Reports vomiting Musculoskeletal: Denies back pain Skin/Breast: Denies rash Denies vertigo and Denies dizziness Psychiatric: Denies anxiety PMFSH Past Medical History Medical History Anxiety Surgical History History of tubal ligation Family History Family History Father No problems noted. Mother Chronic mental illness Maternal Grandmother Breast cancer Maternal Uncle Throat cancer Sister History of tumor Social History Social History Alcohol intake: never Substance Use Type: Heroin Physical Exam ED Vital Signs: Vital Signs - 24 hr 03/04/24 18:02 Temperature 98.9 F Pulse Rate 93 Respiratory Rate 20 Blood Pressure 143/70 H Pulse Oximetry 100 Oxygen Delivery Method Room Air BMI result Body Mass Index 26.6 Const General: healthy appearing, comfortable, no acute distress, alert and awake Nutritional Appearance: well nourished Orientation/consciousness: patient oriented x3 HENMT Head: Yes normocephalic and Yes atraumatic Eyes Eyelids: Yes eyelids normal Conjunctivae: conjunctivae normal Sclerae: sclerae normal Corneas: corneas normal Pupils: Equal, round and reactive pupils present EOM: EOMs intact bilaterally Neck Neck: Yes full ROM Resp Effort & Inspection: normal respiratory effort, able to speak in complete sentences, no audible wheezes and not labored Auscultation: clear to auscultation bilaterally Cardio Other: Bilateral nonpitting edema to the mid lower legs. Rate: regular rate Rhythm: regular rhythm GI Inspection: No distended Palpation (GI): Soft to palpation, not firm, nontender, no guarding and not rigid Skin General skin exam: elasticity normal Neuro General: patient oriented x3 Cranial nerves: Yes CN's II-XII intact bilaterally, Yes Equal, round and reactive pupils present and Yes Bilaterally intact EOM present Cognition (Neuro): normal cognition Extrem Other: Moving all extremities well without any obvious deformities. Course Course Course Narrative: This is an RME: Additional HPI, ROS, PE not included below will be deferred to primary provider. RME assessment and note performed by: Radha Salgado PA-C This is a 18-fagp-dor-female who presents to the ER with complaints of fevers, abdominal pain and vomiting. Ate mcd[employer]ds last night. Daughter currently sick. Plan: Labs, UA, zofran, ekg Medical Decision Making Medical Decision Making MDM Narrative: 44-year-old female presents for evaluation of vomiting, subjective fevers and chills. She is afebrile on arrival, she has no leukocytosis but does have a left shift the may related to vomiting/viral syndrome. She also complains of leg swelling. She endorses her diabetes mostly fast food she would likely cause of her leg swelling with increased sodium intake. Her Wells criteria for DVT is -2, less likely be DVT. There was no evidence of cellulitis. The patient's abdomen is soft, nondistended, nondistended, LFTs within normal limits, doubt acute abdomen. She reports feeling much better after receiving Zofran only. Will discharge her with symptomatic care Differential Diagnosis Differential Diagnoses: The differential diagnosis associated with the presentation includes Acute nausea/vomiting Gastroenteritis IV drug abuse Hypovolemia CHF Cellulitis Admission/Observation Consideration of admission/observation: Escalation of care including admission/observation considered Lab Data [facility] Lab Attestation statement: I reviewed the patient's lab results. See above 03/04/24 18:29 03/04/24 18:29 Labs: Lab Results 03/04/24 Range/Units 18:29 WBC 7.7 (4.8-10.8) X10*3/uL RBC 4.80 (4.20-5.50) X10*6/uL Hgb 13.9 (12.0-16.0) g/dl Hct 40.1 (37.0-47.0) % MCV 83.5 (80.0-98.0) fL MCH 29.0 (27.0-33.0) pg MCHC 34.7 (31.0-35.0) g/dl RDW 12.4 (11.0-16.0) % Plt Count 197 (160-400) X10*3/uL MPV 11.0 (9.4-12.3) fL Immature Gran % (Auto) 0.9 H (0.0-0.4) % Neut % (Auto) 81.0 H (45-73) % Lymph % (Auto) 13.9 L (20-40) % [place] % (Auto) 3.8 (2-11) % Eos % (Auto) 0.1 (0-4) % Baso % (Auto) 0.3 (0-2) % Lymph # (Auto) 1.1 L (1.2-4.9) X10*3/uL [place] # (Auto) 0.3 (0.1-1.2) X10*3/uL Eos # (Auto) 0.0 (0.0-0.4) X10*3/uL Baso # (Auto) 0.0 (0.0-0.2) X10*3/uL Abs Immat Gran (auto) 0.07 H (0.00-0.03) X10*3/uL Absolute Neuts (auto) 6.2 (2.0-8.3) x10*3/uL Absolute Nucleated RBC 0.000 (0.0-0.012) X10*3/uL Nucleated RBC % (auto) 0.0 (0.0-0.2) /100WBC Sodium 142 (135-145) mmol/L Potassium 3.9 (3.3-5.1) mmol/L Chloride 105 (96-108) mmol/L Carbon Dioxide 24 (22-29) mmol/L Anion Gap 17 (12-20) BUN 10 (9-16) mg/dL Creatinine 0.75 (0.5-1.4) mg/dL Estim Creat Clear Calc 100.0 Estimated GFR > 60 Random Glucose 128 H (60-115) mg/dL Calcium 10.0 (8.4-10.2) mg/dL Magnesium 1.9 (1.6-2.6) mg/dL Total Bilirubin 0.8 (0.0-1.0) mg/dL Direct Bilirubin 0.2 (0.0-0.5) mg/dL AST 19 (5-31) U/L ALT 21 (0-31) U/L Alkaline Phosphatase 123 H (39-117) U/L Troponin I High Sens < 2.7 (<3.5-17.0) ng/L Total Protein 7.9 (6.5-8.0) g/dL Albumin 4.5 (3.5-5.0) g/dL Lipase 14 (8-78) U/L Beta HCG, Quant < 2 mIU/mL Influenza Type A (PCR) NEGATIVE (Negative) Influenza Type B (PCR) NEGATIVE (Negative) RSV RNA Qual (PCR) NEGATIVE (Negative) SARS-CoV-2 RNA (RT-PCR) NEGATIVE (Negative) Medications Administered Discontinued Medications Generic Name Dose Route Start Last Admin Trade Name Freq PRN Reason Stop Dose Admin Ondansetron HCl 4 mg 03/04/24 18:03 03/04/24 18:05 Ondansetron Odt 4 Mg Tab.Rapdis TRANSLINGU 03/04/24 18:04 4 mg ONCE ONE Administration Discharge Plan Discharge Clinical Impression: Vomiting Patient Disposition: Home, Self-Care Instructions: Acute Nausea and Vomiting (ED) Additional Instructions: Your workup in the ER today was reassuring. You may use Zofran as needed for nausea and vomiting. Avoid excessive salt intake in your diet as this will likely contribute to leg swelling Follow-up with your primary doctor, return for new or worsening symptoms Prescriptions: New ondansetron 4 mg tablet,disintegrating 4 mg PO Q8H PRN (Reason: nausea and vomiting) Qty: 20 0RF No Action clonazepam 1 mg tablet 1 mg PO TID PRN (Reason: anxiety) 5 Days Qty: 15 0RF quetiapine 200 mg tablet 400 mg PO BEDTIME 90 Days Qty: 180 3RF ondansetron HCl 8 mg tablet 8 mg PO Q12H 30 Days Qty: 60 6RF amoxicillin-pot clavulanate 875-125 mg tablet 1 tab PO BID 7 Days Qty: 14 0RF ketorolac 10 mg tablet 10 mg PO Q6H PRN (Reason: pain) 5 Days Qty: 20 0RF Rx Instructions: Patient received Toradol in the emergency room. oxycodone 5 mg capsule 5 mg PO Q8H PRN (Reason: breakthrough pain, severe) Qty: 4 0RF Rx Instructions: Partial Fill upon patient request. hydrochlorothiazide 12.5 mg tablet 12.5 mg PO QAM Qty: 14 0RF furosemide [Lasix] 40 mg tablet 40 mg PO DAILY Qty: 7 0RF Print Language: Portuguese
--- NOTE | 2024-03-04 18:03 | ECG_ITS ---
Test Reason : epigastric pain Blood Pressure : / mmHG Vent. Rate : 065 BPM Atrial Rate : 065 BPM P-R Int : 152 ms QRS Dur : 082 ms QT Int : 446 ms P-R-T Axes : 061 030 056 degrees QTc Int : 463 ms Normal sinus rhythm with sinus arrhythmia Normal ECG When compared with ECG of 12-FEB-2019 00:20, T wave amplitude has increased in Inferior leads T wave amplitude has increased in Lateral leads Referred By: Radha Salgado Electronically Signed By:COSME GROSS
[2024-03-04] MEDS: Ondansetron ODT 4 MG TAB.RAPDIS TRANSLINGU (18:05)
[2024-03-04 18:34] LABS: MANUAL DIFF FLAG NO
[2024-03-04 18:52] LABS: Alanine Aminotransferase 21 U/L (0-31); Albumin Level 4.5 g/dL (3.5-5.0); Alkaline Phosphatase 123 U/L (39-117); Anion Gap 17 (12-20); Aspartate Amino Transferase 19 U/L (5-31); Bilirubin Direct 0.2 mg/dL (0.0-0.5); Bilirubin Total 0.8 mg/dL (0.0-1.0); Blood Urea Nitrogen 10 mg/dL (9-16); Carbon Dioxide 24 mmol/L (22-29); Chloride 105 mmol/L (96-108); Estimated Glomerular Filt Rate > 60; Glucose Random 128 mg/dL (60-115); Lipase 14 U/L (8-78); Magnesium 1.9 mg/dL (1.6-2.6); Potassium 3.9 mmol/L (3.3-5.1); Sodium 142 mmol/L (135-145); Total Protein 7.9 g/dL (6.5-8.0)
[2024-03-04 18:58] LABS: Basophils Percent Auto 0.3 % (0-2); Eosinophils Percent Auto 0.1 % (0-4); HCG Quantitative < 2 mIU/mL; Hematocrit 40.1 % (37.0-47.0); Hemoglobin 13.9 g/dl (12.0-16.0); Imm Gran Abs Auto 0.07 X10*3/uL (0.00-0.03); Imm Gran Pct Auto 0.9 % (0.0-0.4); Lymphocytes Absolute Auto 1.1 X10*3/uL (1.2-4.9); Lymphocytes Percent Auto 13.9 % (20-40); Mean Corpuscular HGB Conc 34.7 g/dl (31.0-35.0); Mean Corpuscular Volume 83.5 fL (80.0-98.0); Monocytes Absolute Auto 0.3 X10*3/uL (0.1-1.2); Monocytes Percent Auto 3.8 % (2-11); Neutrophils Absolute Auto 6.2 x10*3/uL (2.0-8.3); Platelet Count 197 X10*3/uL (160-400); Red Cell Distribution Width 12.4 % (11.0-16.0); Troponin-I High Sensitivity < 2.7 ng/L (<3.5-17.0); White Blood Count 7.7 X10*3/uL (4.8-10.8)
[2024-03-04 19:56] LABS: Influenza A PCR NEGATIVE (Negative); Influenza B PCR NEGATIVE (Negative); Resp Syncy Virus RNA Qual PCR NEGATIVE (Negative); SARS COV2 PCR INHOUSE NEGATIVE (Negative)
[2024-03-05] MEDS: Ondansetron ODT 4 MG TAB.RAPDIS TRANSLINGU (00:51)
[2024-03-05 00:53] VITALS: BP 115/56; PULSE 58; RESP 15; TEMP 37.2; O2SAT 99
== END 2024-03-05 01:02 | disposition home or self-care (01) ==
LOC: HO.ED 03-05 00:37
PROVIDERS: Physician Assistant Medical; Emergency Provider Emergency Medicine; PCP Internal Medicine
DX: R11.2 Nausea with vomiting, unspecified (principal); R50.9 Fever, unspecified; R10.13 Epigastric pain; I49.8 Other specified cardiac arrhythmias; Z59.00 Homelessness unspecified; Z03.818 Encounter for observation for suspected exposure to other biological agents ruled out; Z79.899 Other long term (current) drug therapy
CPT/HCPCS: 0241U; 36415; 80048; 80076; 83690; 83735; 84484; 84702; 85025; 93005; 99283

== ENCOUNTER → 2024-03-04 18:03 | Outpatient (BNV) | payer OTHER, SELFPAY | PROVIDERS: Emergency Provider Emergency Medicine; PCP Internal Medicine; Visit Provider Internal Medicine | DX: R10.13 Epigastric pain (principal) | CPT/HCPCS: 93010 ==

== ENCOUNTER 2024-06-12 07:25 | Emergency (ER) | payer OTHER, SELFPAY ==
[2024-06-12 07:36] VITALS: BP 120/69; PULSE 66; RESP 16; TEMP 36.3; O2SAT 99; BMI 24.1
[2024-06-12] MEDS: Ondansetron ODT 4 MG TAB.RAPDIS TRANSLINGU (07:40)
[2024-06-12 09:56] LABS: Influenza A PCR NEGATIVE (Negative); Influenza B PCR NEGATIVE (Negative); Resp Syncy Virus RNA Qual PCR NEGATIVE (Negative); SARS COV2 PCR INHOUSE NEGATIVE (Negative)
--- OUTSIDE RECORDS SUMMARY | 2024-06-12 17:25 | XMS_ITS | Clinical Summary ---
Author Organization [facility] it Address [address] [place] [address] Care Team Providers Care Video Control Engineer Name Role Phone Unavailable Primary Care Provider Unavailabl e Surgical History Surgery Date Site/Laterality Comments TUBAL LIGATION PROCEDURE: HISTORICAL TUBAL LIGATION ESOPHAGOGASTRODUODENOSCOPY 2012 PROCEDURE: [place] ESOPHAGOGASTRODUODENOSCOPY TRANSORAL DIAGNOSTIC; COMMENT: normal Medical History Medical History Date Comments Anxiety and depression 10/19/2011 DX:Anxiet y and depression Substance abuse or dependence 10/19/2011 DX :Substance abuse or dependence; COMMENT: methadone 63 mg daily Family History Medical History Relation Name Comments Breast cancer Mother Throat cancer Uncle 1 Ovarian cancer Neg Hx Uterine cancer Neg Hx Relation Name Status Comments Daughter 1 Alive Daughter 2 Father Maternal Grandfather Maternal Grandmother Mother Alive Paternal Grandfather Paternal Grandmother Sister Alive Son 1 Alive Son 2 Alive Son 3 Alive Uncle 1 Uncle 2 Social History Tobacco Use Types Packs/Day Years Used Date Smoking Tobacco: Every Day Cigarettes Smokeless Tobacco: Current Alcohol Use Standard Drinks/Week Comments No 0 (1 standard drink = 0.6 oz pur e alcohol) Sex and Gender Information Value Date Recorded Sex Assigned at Not on file Gender Identity Not on file Sexual Orientation Not on file Obstetrics History Plan of Treatment Health Maintenance Due Date Last Done Comments Breast Cancer Screening 1981 Pneumococcal Vaccine: Pediat rics (0 to 5 Years) and At-Risk Patients (6 to 64 Years) (1 of 2 - PCV) 1987 DTaP,Tdap,and Td Vaccines (1 - Tdap) 01/21/2000 Hepatitis B Vaccines (1 of 3 - 19+ 3-dose series) 01/21/2000 Cervical Cancer Screening: P ap Smear 2002 Depression Screening 01/15/2024 HIV Screening 01/15/2024 Hepatitis C Screening 01/15/2024 Social Influencers of Health Screening 01/15/2024 COVID-19 Vaccine ( - 2023-2 5 season) 2024 Influenza Vaccine (#1) 2024 HIB Vaccines Aged Out No longer eligi ble based on patient's age to complete this topic HPV Vaccines Aged Out No longer eligi ble based on patient's age to complete this topic Hepatitis A Vaccines Aged Out No long er eligible based on patient's age to complete this topic IPV Vaccines Aged Out No longer eligi ble based on patient's age to complete this topic MMR Vaccines Aged Out No longer eligi ble based on patient's age to complete this topic Meningococcal ACWY Vaccine Aged Out N o longer eligible based on patient's age to complete this topic RSV Immunization Patients Un lauren 20 months Aged Out No longer eligible b ased on patient's age to complete this topic Varicella Vaccines Aged Out No longer eligible based on patient's age to complete this topic
== END 2024-06-12 15:02 | disposition left against medical advice (07) ==
PROVIDERS: Emergency Provider Emergency Medicine; PCP Internal Medicine
DX: R11.2 Nausea with vomiting, unspecified (principal); Z03.818 Encounter for observation for suspected exposure to other biological agents ruled out
CPT/HCPCS: 0241U; 99281

== ENCOUNTER 2024-07-11 00:14 | Emergency (ER) | payer OTHER, SELFPAY ==
--- NOTE | ~2024-07-11 | XR_ITS ---
CLINICAL HISTORY: fall, pain 3 views lumbar spine Comparison: None Findings: Normal alignment. No acute fractures or dislocation. Mild degenerative disc disease is present at L4-L5 and L5-S1 with moderate disc height loss. IMPRESSION: No acute findings. This document has been electronically signed by: Joe Barraza MD, PHD on 07/11/2024 03:31:16
--- NOTE | ~2024-07-11 | XR_ITS ---
CLINICAL HISTORY: fall, pain 3 view, pelvis and left hip Comparison: None Findings: The bones are intact. No significant arthritic change. Metallic staple projects over the left hip soft tissues, presumably external to the patient. IMPRESSION: No acute findings. This document has been electronically signed by: Joe Barraza MD, PHD on 07/11/2024 03:33:18
[2024-07-11 00:25] VITALS: BP 95/49; PULSE 67; RESP 20; TEMP 36.5; O2SAT 98; BMI 23.3
--- OUTSIDE RECORDS SUMMARY | 2024-07-11 13:05 | XMS_ITS | Clinical Summary ---
Author Organization [facility] it Address [address] [place] [address] Care Team Providers Care Staffing Assistant Name Role Phone Unavailable Primary Care Provider Unavailabl e Surgical History Surgery Date Site/Laterality Comments TUBAL LIGATION PROCEDURE: HISTORICAL TUBAL LIGATION ESOPHAGOGASTRODUODENOSCOPY 2012 PROCEDURE: [place] ESOPHAGOGASTRODUODENOSCOPY TRANSORAL DIAGNOSTIC; COMMENT: normal Medical History [...] drink = 0.6 oz pur e alcohol) Comments Unknown Sex and Gender Information Value Date Recorded Sex Assigned at Not on file Legal Sex Female 12:49 AM EST Gender Identity Not on file Sexual Orientation Not on file Obstetrics History Plan of Treatment Health Maintenance Due Date Last Done Comments Breast Cancer Screening 1981 DTaP,Tdap,and Td Vaccines (1 - Tdap) 01/21/2000 Hepatitis B Vaccines (1 of 3 - 19+ 3-dose series) 01/21/2000 Pneumococcal Vaccine: Pediat rics (0 to 5 Years) and At-Risk Patients (6 to 64 Years) (1 of 2 - PCV) 01/21/2000 Cervical Cancer Screening: P ap Smear 2002 Depression Screening 01/15/2024 HIV Screening 01/15/2024 Hepatitis C Screening 01/15/2024 Social Influencers of Health Screening 01/15/2024 COVID-19 Vaccine (2023-2 5 season) 2024 Influenza Vaccine (#1) 2024 [...] patient's age to complete this topic Meningococcal B Vacine Aged Out No lo nger eligible based on patient's age to complete this topic RSV Immunization Patients Un lauren 20 months Aged Out No longer eligible b ased on patient's age to complete this topic Varicella Vaccines Aged Out No longer eligible based on patient's age to complete this topic
== END 2024-07-11 11:56 | disposition left against medical advice (07) ==
PROVIDERS: Emergency Provider Emergency Medicine; PCP Internal Medicine
DX: M25.552 Pain in left hip (principal); M54.50 Low back pain, unspecified
CPT/HCPCS: 72100; 73502; 99281

== ENCOUNTER → 2024-07-11 03:05 | Outpatient (BNV) | payer OTHER, SELFPAY | PROVIDERS: PCP Internal Medicine; Visit Provider General Practice | DX: M25.552 Pain in left hip (principal); M51.369 Other intervertebral disc degeneration, lumbar region without mention of lumbar back pain or lower extremity pain | CPT/HCPCS: 72100; 73502 ==

== ENCOUNTER 2024-08-26 16:45 | Emergency (ER) | payer SELFPAY ==
[2024-08-26 17:09] VITALS: BP 138/70; PULSE 88; RESP 16; TEMP 36.9; O2SAT 100; BMI 23.3
--- NOTE | 2024-08-26 17:19 | ED_ITS ---
HPI - General Adult General Chief complaint: Dental/Oral Stated complaint: ? mouth infection Time Seen by Provider: 08/26/24 17:16 Source: patient Mode of arrival: ambulatory Limitations: no limitations History of Present Illness ED Provider: Osmany Molina HPI narrative: 44 yold female presents to the ED for painful upper gums and than painful left upper and lower molar painful crack tooth. patient denies any facial swelling, pus discharge, foul odor, drooling, change in voice, or recent trauma. Related Data Previous Rx's ?Medication ?Instructions ?Recorded clonazepam 1 mg tablet 1 mg PO TID PRN anxiety 5 days #15 04/09/21 tabs hydrochlorothiazide 12.5 mg tablet 12.5 mg PO QAM #14 tabs 04/06/22 amoxicillin 875 mg-potassium 1 tab PO BID 7 days #14 tabs 07/19/22 clavulanate 125 mg tablet ketorolac 10 mg tablet 10 mg PO Q6H PRN pain 5 days #20 07/19/22 tabs oxycodone 5 mg capsule 5 mg PO Q8H PRN breakthrough pain, 07/19/22 severe #4 caps quetiapine 200 mg tablet 400 mg (2 x 200 mg) PO BEDTIME 90 08/18/22 days #180 tabs ondansetron HCl 8 mg tablet 8 mg PO Q12H 30 days #60 tabs 09/06/22 furosemide 40 mg tablet (Lasix) 40 mg PO DAILY #7 tabs 12/29/23 ondansetron 4 mg disintegrating 4 mg PO Q8H PRN nausea and 03/05/24 tablet vomiting #20 tabs amoxicillin 875 mg-potassium 1 tab PO Q12H 10 days #20 tabs 08/26/24 clavulanate 125 mg tablet Allergies Allergy/AdvReac Type Severity Reaction Status Date / Time pantoprazole Allergy Unknown stomach Verified 08/26/24 17:11 pain Review of Systems 2 Review of Systems: painful gums, toothache Yes all other systems are reviewed and are negative [facility] Past Medical History Medical History Anxiety Surgical History History of tubal ligation Family History Family History Father No problems noted. Mother Chronic mental illness Maternal Grandmother Breast cancer Maternal Uncle Throat cancer Sister History of tumor Social History Social History Alcohol intake: never Substance Use Type: Heroin Advance Directives: No Advance Directives Information Provided: No Do you have a plan to hurt others: No Plan Physical Exam ED Vital Signs: Vital Signs - 24 hr 08/26/24 17:09 08/26/24 17:31 Temperature 98.5 F 98.5 F Pulse Rate 88 88 Respiratory Rate 16 16 Blood Pressure 138/70 138/70 Pulse Oximetry 100 100 Oxygen Delivery Method Room Air Room Air BMI result Body Mass Index 23.3 Const General: cooperative, healthy appearing, comfortable, no acute distress, well developed, alert, awake and Physically active Orientation/consciousness: patient oriented x3 HENMT Other: negative for facial swelling, tongues swelling, or lip swelling. Head: Yes normal to inspection, Yes No palpable skull fracture present, Yes normocephalic and No atraumatic Teeth image: 2 1. broken tooth that is tender with some yellow collection. negative for gums swelling or redness. negative for trismus 2. broken tooth that is tender with some yellow collection. negative for gums swelling or redness. negative for trismus 3. positive for canker sores 4. positive for canker sores Eyes General: appearance normal, both eyes and all related structures Neck Neck: Yes normal visual inspection, Yes full ROM, Yes no lymphadenopathy, Yes no meningeal signs, Yes trachea midline, Yes supple, No anterior neck swelling and No tender Chest Chest palpation & inspection: normal inspection of the chest and normal palpation of entire chest wall Resp Effort & Inspection: normal respiratory effort and able to speak in complete sentences Auscultation: clear to auscultation bilaterally Cardio Jugular venous distension: no JVD Heart sounds: S1 normal heart sound present and S2 normal heart sound present GI Inspection: Yes normal to inspection Palpation (GI): Soft to palpation, not firm, nontender, no guarding and not rigid General: Yes no CVA tenderness Back/Spine/Pelvis Back: no CVA tenderness and No back tenderness Skin General skin exam: no rashes or lesions noted, elasticity normal and turgor normal Neuro General: patient oriented x3, gait normal, tone normal, moves all extremities, Normal light touch and pain sensation, no meningeal signs, no focal motor deficits and CN's II-XI intact bilaterally Extrem General: Yes normal to inspection, Yes full ROM and Yes capillary refill normal Psych Appearance: grossly normal, well kempt and not disheveled Medical Decision Making Medical Decision Making MDM Narrative: 44 yold female presents to the ED for dental pain and mouth pain. patient states upper gums are painful. Secondary complaint is left upper and loower molar are painful. Negative for neck swelling, drooling, change in voice, sore throat, fever, or chills. Positive for upper gums canker sores. positive for left upper/lower molar pain on palpatoin. Negative for gum swelling or redness. Negative for trismus. Not suspecting Casey's angina, retropharyngeal abscess, thrush, peritonsillar abscess, or any life-threatening etiology. Patient will be discharged on antibiotics for tooth ache. Patient explained she can by [id number] oral gel for canker sores. Patient explained this to follow up with her dentist. Patient explained worrisome signs and informed to return to the ED immediately. Differential Diagnosis Differential Diagnoses: The differential diagnosis associated with the presentation includes (Dental pain, pancreas sores,) Admission/Observation Consideration of admission/observation: Escalation of care including admission/observation considered Independent Historian Clinical information obtained from an independent historian. History obtained from or confirmed by: Other (Patient) Prescription Management I considered prescription management with: Antibiotic Discharge Plan Discharge Clinical Impression: Toothache, Aphthous ulcer Patient Disposition: Home, Self-Care Instructions: Canker Sores (ED), Toothache (ED) Additional Instructions: Recommend follow-up with your dentist. Return to the ED immediately for any worsening dental pain, lip/tongue swelling, drooling, change in voice, fever, chills, inability tolerate solid food/liquid, or any other concerning symptoms. Continue taking Motrin for pain. You can use [id number] Orajel for pain relief Prescriptions: New amoxicillin-pot clavulanate 875-125 mg tablet 1 tab PO Q12H 10 Days Qty: 20 0RF No Action clonazepam 1 mg tablet 1 mg PO TID PRN (Reason: anxiety) 5 Days Qty: 15 0RF quetiapine 200 mg tablet 400 mg PO BEDTIME 90 Days Qty: 180 3RF ondansetron HCl 8 mg tablet 8 mg PO Q12H 30 Days Qty: 60 6RF amoxicillin-pot clavulanate 875-125 mg tablet 1 tab PO BID 7 Days Qty: 14 0RF ketorolac 10 mg tablet 10 mg PO Q6H PRN (Reason: pain) 5 Days Qty: 20 0RF Rx Instructions: Patient received Toradol in the emergency room. oxycodone 5 mg capsule 5 mg PO Q8H PRN (Reason: breakthrough pain, severe) Qty: 4 0RF Rx Instructions: Partial Fill upon patient request. hydrochlorothiazide 12.5 mg tablet 12.5 mg PO QAM Qty: 14 0RF furosemide [Lasix] 40 mg tablet 40 mg PO DAILY Qty: 7 0RF ondansetron 4 mg tablet,disintegrating 4 mg PO Q8H PRN (Reason: nausea and vomiting) Qty: 20 0RF Interventions: ED Discharge Assessment Last Done: 08/26/24 17:31 Discharge Date/Time: 08/26/24 17:32 Print Language: Czech
[2024-08-26 17:31] VITALS: BP 138/70; PULSE 88; RESP 16; TEMP 36.9; O2SAT 100
--- OUTSIDE RECORDS SUMMARY | 2024-08-26 18:54 | XMS_ITS | Clinical Summary ---
Author Organization [facility] Address [address] [place] [address] Phone Care Team Providers Care Show Card Writer Name Role Phone Jade Davis MD Primary Care Provider [phone] Allergies No known active allergies Medications acetaminophen (TYLENOL) 500 mg tablet Take 2 tablets (1,000 mg total) by mouth every 6 (six) hours if needed for mild pain for up to 10 days. 30 tablet 07/26/2024 08/06/19 25 meloxicam (MOBIC) 7.5 mg tablet Take 1 tablet (7.5 mg total) by mouth 1 (one) time each day for 15 days. 15 each 07/26/2024 08/11/19 25 Encounters Date Type Department Care Team Description 07/26/2024 12:04 AM EST - 07/26/2024 12:42 AM EST Emergency [facility] Emergency [address] [place] [address] Left hip pain (Primary Dx) Discharge Disposition: Home or Self Care from Last 3 Months Surgical History Surgery Date Site/Laterality Comments TUBAL LIGATION PROCEDURE: HISTORICAL TUBAL LIGATION ESOPHAGOGASTRODUODENOSCOPY 2012 PROCEDURE: [place] ESOPHAGOGASTRODUODENOSCOPY TRANSORAL DIAGNOSTIC; COMMENT: normal Medical History [...] Information Value Date Recorded Sex Assigned at Female 07/26/2024 12:18 AM EST Legal Sex Female 12:49 AM EST Gender Identity Female 07/26/2024 12:18 AM EST Sexual Orientation Straight 07/26/2024 12 :18 AM EST Obstetrics History Last Filed Vital Signs Vital Sign Reading Time Taken Comments Blood Pressure 131/77 07/25/2024 11:32 PM EST Pulse 101 07/25/2024 11:32 PM EST Temperature 36.7 ??C (98.1 ??F) 07/25/2024 11:[address] Respiratory Rate 18 07/25/2024 11:32 PM EST Oxygen Saturation 98% 07/25/2024 11:32 PM EST Inhaled Oxygen Concentration - - Weight 59 kg (130 lb) 07/25/2024 11:30 PM EST Height 165.1 cm (5' 5 ) 07/25/2024 11:30 PM EST Body Mass Index 21.63 07/25/2024 11:30 PM EST Plan of Treatment Health Maintenance Due Date Last Done Comments Breast Cancer Screening 1981 Hepatitis B Vaccines (1 of 3 - 19+ 3-dose series) 01/21/2000 Pneumococcal Vaccine: Pediat rics (0 to 5 Years) and At-Risk Patients (6 to 64 Years) (1 of 2 - PCV) 01/21/2000 Cervical Cancer Screening: P ap Smear 2002 Depression Screening 01/15/2024 HIV Screening 01/15/2024 Hepatitis C Screening 01/15/2024 Social Influencers of Health Screening 01/15/2024 COVID-19 Vaccine (1 - 2023-2 5 season) 2024 Influenza Vaccine (#1) 2024 DTaP,Tdap,and Td Vaccines (2 - Td or Tdap) 03/01/2026 03/01/2016 HIB Vaccines Aged Out No longer eligi [...] age to complete this topic Meningococcal B Vaccine Aged Out No l onger eligible based on patient's age to complete this topic RSV Immunization Patients Un lauren 20 months Aged Out No longer eligible b ased on patient's age to complete this topic Varicella Vaccines Aged Out No longer eligible based on patient's age to complete this topic Procedures Procedure Name Priority Date/Time Associated Diagnosis Comments XR HIP 2-3 VIEWS LEFT STAT 07/26/2024 12:02 AM EST from Last 3 Months Results * XR Hip 2-3 Views Left (07/26/2024 12:02 AM EST) Anatomical Region Laterality Modality Lower Extremities, Hip Left Radiograp hic Imaging 07/26/2024 8:14 AM EST Impressions 07/26/2024 8:14 AM EST No acute findings. -------- FINAL REPORT -------- Dictated By: Yao Baeza Dictated Date: 07/26/2024 08:14 ET Assigned Physician: Yao Baeza Reviewed and Electronically Signed By: Yao Baeza Signed Date: 07/26/2024 08:14 ET Workstation ID: [id number] Transcribed By: Self Edit Transcribed Date: 07/26/2024 08:14 ET Narrative 07/26/2024 8:14 AM EST PROCEDURE: Radiographs of the left hip. HISTORY: fall/left hip pain. COMPARISON: None. FINDINGS: No fracture or malalignment. ??No bony lesion. ??Minimal degenerative changes of the hips, pubic symphysis, and sacroiliac joints. ??Mild degenerative changes of the lower lumbar spine. ??No soft tissue abnormality. Procedure Note Yao Baeza MD - 07/26/2024 PROCEDURE: Radiographs of the left hip. HISTORY: fall/left hip pain. COMPARISON: None. FINDINGS: No fracture or malalignment. No bony lesion. Minimal degenerativechanges of the hips, pubic symphysis, and sacroiliac joints. Milddegenerative changes of the lower lumbar spine. No soft tissueabnormality. IMPRESSION: No acute findings. -------- FINAL REPORT -------- Dictated By: Yao Baeza Dictated Date: 07/26/2024 08:14 ET Assigned Physician: Yao Baeza Reviewed and Electronically Signed By: Yao Baeza Signed Date: 07/26/2024 08:14 ET Workstation ID: [id number] Transcribed By: Self Edit Transcribed Date: 07/26/2024 08:14 ET Gladys Torres MD IMG XR PROCEDURES Final Result from Last 3 Months Insurance [facility] [employer] [place] [address] Care Teams Show Card Writer Relationship Specialty Start Date End Date Jade Davis MD [address] [place] [address] , [address] Physician Associ D/B/A: [facility] [place] PCP - General Internal Medicine 07/26/24
== END 2024-08-26 17:32 | disposition home or self-care (01) ==
PROVIDERS: Emergency Provider Emergency Medicine Emergency Medical Services; PCP Internal Medicine
DX: K12.0 Recurrent oral aphthae (principal); K08.89 Other specified disorders of teeth and supporting structures
CPT/HCPCS: 99282; 99283